=== PATIENT | female | born 1990 | race Caucasian/White ===

== ENCOUNTER 2017-04-01 17:30 | Inpatient (IN) | payer OTHER ==
[~2017-04-01] VITALS: Ht 160 cm; Wt 60.8 kg
[2017-04-01] MEDS ORDERED: LR 1,000 ML IV SCH (19:22)
[2017-04-01] MEDS ORDERED: LR 1,000 ML IV ONE (19:22)
[2017-04-01] MEDS ORDERED: OXYTOCIN/NORMAL SALINE 1,000 ML IV SCH (19:22)
[2017-04-01] MEDS ORDERED: CLINDAMYCIN 900 mg/50mL D5W 50 ML IV SCH (19:30)
[2017-04-01] MEDS ORDERED: TERBUTALINE SULFATE 1 MG/ML VIAL SUBCUT ONE (19:30)
[2017-04-01] MEDS ORDERED: NALBUPHINE HCL 10 MG/ML AMP IVP PRN (19:30)
[2017-04-01 20:03] LABS: HEMOGLOBIN 12.9 g/dL (12.0-16.0)
[2017-04-01 20:10] LABS: BASOPHILS # (AUTO) 0.1 K/uL (0.0-0.2); BASOPHILS % (AUTO) 1.3 % (0.0-2.0); EOSINOPHILS % (AUTO) 0.5 % (0.0-4.0); HEMATOCRIT 37.7 % (36-48); LYMPHOCYTES # (AUTO) 1.1 K/uL (1.0-5.5); LYMPHOCYTES % (AUTO) 13.1 % (20.5-51.5); MEAN CORPUSCULAR HEMOGLOBIN 32 pg (27-31); MEAN CORPUSCULAR HGB CONC 34 % (32-36); MEAN CORPUSCULAR VOLUME 94 fL (79.0-98.0); MONOCYTES # (AUTO) 0.3 K/uL (0.0-1.0); MONOCYTES % (AUTO) 3.6 % (1.7-9.3); NEUTROPHILS # (AUTO) 6.8 K/uL (1.8-7.7); RED BLOOD CELL COUNT(AUTO) 4.03 MIL/uL (4.2-6.2); RED CELL DISTRIBUTION WIDTH 13.1 % (9.0-15.0); WHITE BLOOD COUNT (AUTO) 8.3 K/uL (4.8-10.8)
[2017-04-01 20:30] LABS: PLATELET COUNT (AUTO) 163 K/uL (130-430)
[2017-04-01 20:31] LABS: NEUTROPHILS % (AUTO) 81.5 % (40.0-70.0)
[2017-04-01] MEDS ORDERED: fentaNYL CITRATE/PF 100 MCG/2 ML AMP ONE (21:04)
[2017-04-01] MEDS ORDERED: FENT2mCg/mL-ROPIVA0.2%/NS EPID 150 ML EP ONE (21:04)
[2017-04-01] MEDS ORDERED: LR 500 ML IV ONE (21:23)
[2017-04-01] MEDS ORDERED: FENT2mCg/mL-ROPIVA0.2%/NS EPID 150 ML EP SCH (21:30)
[2017-04-01] MEDS ORDERED: ePHEDrine sulfate 50 MG/ML VIAL IVP PRN (21:30)
[2017-04-02] MEDS ORDERED: OXYTOCIN/NORMAL SALINE 1,000 ML IV SCH (03:08)
[2017-04-02] MEDS ORDERED: OXYTOCIN/NORMAL SALINE 1,000 ML IV ONE (03:08)
[2017-04-02] MEDS ORDERED: DOCUSATE SODIUM 100 MG CAPSULE PO PRN (03:15)
[2017-04-02] MEDS ORDERED: OXYCODONE/ACETAMINOPHEN 5-325 TABLET PO PRN ×2 (03:15)
[2017-04-02] MEDS ORDERED: RHO(D) IMMUNE GLOBULIN/MALTOSE 1500 UNITS/1.3 ML (WINHRO) IM PRN (03:15)
[2017-04-02] MEDS ORDERED: METHYLERGONOVINE MALEATE 0.2 MG TABLET PO PRN (03:15)
[2017-04-02] MEDS ORDERED: ANUSOL 1 EA SUPP.RECT (PREPARATION H) RC PRN (03:15)
[2017-04-02] MEDS ORDERED: DERMOPLAST SPRAY TP PRN (03:15)
[2017-04-02] MEDS ORDERED: HYDROcodone/ACETAMIN 5-325 MG TAB (NORCO/ VICODIN) PO PRN (03:15)
[2017-04-02] MEDS ORDERED: GLYCERIN/WITCH HAZEL (TUCKS PADS) TP PRN (03:15)
[2017-04-02] MEDS ORDERED: LANOLIN 7 GM OINT. TP PRN (03:15)
[2017-04-02] MEDS ORDERED: HYDROCORTISONE 0.5%, 28.35 GM TOPICAL CREAM TP PRN (03:15)
[2017-04-02] MEDS ORDERED: SENNOSIDES/DOCUSATE SODIUM 1 TAB TABLET(SENOKOT-S) PO PRN (03:15)
[2017-04-02] MEDS ORDERED: MEASLES,MUMPS&RUBELLA VACC/PF 12500 UNIT/0.5 ML VIAL SUBQ PRN (03:15)
[2017-04-02] MEDS: IBUPROFEN 600 MG TABLET PO SCH (11:59)
[2017-04-02] MEDS ORDERED: TEMAZEPAM 15 MG CAPSULE PO PRN (21:00)
[2017-04-03] MEDS: IBUPROFEN 600 MG TABLET PO SCH ×3 (02:20→12:48)
[2017-04-03] MEDS ORDERED: IBUPROFEN 600 MG TABLET ONE ×2 (02:26→05:57)
[2017-04-03 08:13] LABS: BASOPHILS % (AUTO) 0.4 % (0.0-2.0); EOSINOPHILS # (AUTO) 0.1 K/uL (0.0-0.4); EOSINOPHILS % (AUTO) 0.9 % (0.0-4.0); HEMATOCRIT 33.2 % (36-48); HEMOGLOBIN 10.9 g/dL (12.0-16.0); LYMPHOCYTES # (AUTO) 1.4 K/uL (1.0-5.5); LYMPHOCYTES % (AUTO) 13.5 % (20.5-51.5); MEAN CORPUSCULAR HEMOGLOBIN 31 pg (27-31); MEAN CORPUSCULAR HGB CONC 33 % (32-36); MEAN CORPUSCULAR VOLUME 94 fL (79.0-98.0); MONOCYTES # (AUTO) 0.4 K/uL (0.0-1.0); MONOCYTES % (AUTO) 3.7 % (1.7-9.3); NEUTROPHILS # (AUTO) 8.1 K/uL (1.8-7.7); PLATELET COUNT (AUTO) 147 K/uL (130-430); RED BLOOD CELL COUNT(AUTO) 3.53 MIL/uL (4.2-6.2); RED CELL DISTRIBUTION WIDTH 12.9 % (9.0-15.0)
[2017-04-03 10:26] LABS: NEUTROPHILS % (AUTO) 81.5 % (40.0-70.0)
[2017-04-03] MEDS ORDERED: LIDOCAINE PF 1% 30ML(POUR BTL) INJ ONE (15:00)
== END 2017-04-03 16:45 | disposition home or self-care (01) | DRG 775 ==
LOC: SPU 17:30
PROVIDERS: ADMIT Specialist; ATTEND Specialist
PROC: 10E0XZZ Delivery of Products of Conception, External Approach (ICD-10-PCS; principal; 2017-04-02)
PROC: 0KQM0ZZ Repair Perineum Muscle, Open Approach (ICD-10-PCS; 2017-04-02)
PROC: 3E0R3CZ (ICD-10-PCS; 2017-04-02)
PROC: 00HU33Z Insertion of Infusion Device into Spinal Canal, Percutaneous Approach (ICD-10-PCS; 2017-04-02)
PROC: 3E0134Z Introduction of Serum, Toxoid and Vaccine into Subcutaneous Tissue, Percutaneous Approach (ICD-10-PCS; 2017-04-02)
DX: O42.92 Full-term premature rupture of membranes, unspecified as to length of time between rupture and onset of labor (principal); O69.81X0 Labor and delivery complicated by cord around neck, without compression, not applicable or unspecified; O70.1 Second degree perineal laceration during delivery; Z3A.37 37 weeks gestation of pregnancy; Z37.0 Single live birth; Z88.0 Allergy status to penicillin; Z23 Encounter for immunization
CPT/HCPCS: 36415; 81002-TC; 82947-TC; 82962; 85025; 86592; 86886; 86900; 86901; J2001; J2590; J3010; J3490; J7120

== ENCOUNTER 2018-10-06 22:44 | Emergency (ER) | payer OTHER ==
[~2018-10-06] VITALS: Ht 160 cm; Wt 57.2 kg
[2018-10-06 22:56] VITALS: BP_SYST 124
[2018-10-06] MEDS ORDERED: ACETAMINOPHEN 500 MG TABLET PO ONE (23:15)
[2018-10-06] MEDS ORDERED: NACL 0.9% 1,000 ML IV ONE (23:15)
[2018-10-06] MEDS ORDERED: AZITHROMYCIN 250 MG TABLET PO ONE (23:15)
[2018-10-07 00:15] VITALS: BP_SYST 124
== END 2018-10-07 00:15 | disposition home or self-care (01) ==
LOC: SED 22:44
DX: J32.9 Chronic sinusitis, unspecified (principal); Z88.0 Allergy status to penicillin
CPT/HCPCS: 96360; 99283; J7030; Q0144

== ENCOUNTER 2022-01-21 12:59 | Inpatient (IN) | payer OTHER ==
[~2022-01-21] VITALS: Ht 160 cm; Wt 67.1 kg
[2022-01-21] MEDS ORDERED: NALBUPHINE HCL 10 MG/ML AMP IVP PRN (14:15)
[2022-01-21] MEDS ORDERED: TERBUTALINE SULFATE 1 MG/ML VIAL SUBCUT ONE (14:15)
[2022-01-21] MEDS ORDERED: LR 1,000 ML IV SCH (14:15)
[2022-01-21 14:20] VITALS: BP_SYST 115
[2022-01-21 14:53] LABS: BASOPHILS % (AUTO) 0.2 % (0.0-2.0); EOSINOPHILS # (AUTO) 0.1 K/uL (0.0-0.4); EOSINOPHILS % (AUTO) 0.7 % (0.0-4.0); HEMATOCRIT 35.1 % (36-48); LYMPHOCYTES # (AUTO) 0.9 K/uL (1.0-5.5); LYMPHOCYTES % (AUTO) 11.1 % (20.5-51.5); MEAN CORPUSCULAR HEMOGLOBIN 31 pg (27-31); MEAN CORPUSCULAR HGB CONC 34 % (32-36); MEAN CORPUSCULAR VOLUME 91 fL (79.0-98.0); MONOCYTES # (AUTO) 0.3 K/uL (0.0-1.0); MONOCYTES % (AUTO) 3.9 % (1.7-9.3); NEUTROPHILS # (AUTO) 6.9 K/uL (1.8-7.7); NEUTROPHILS % (AUTO) 84.1 % (40.0-70.0); PLATELET COUNT (AUTO) 201 K/uL (130-430); RED BLOOD CELL COUNT(AUTO) 3.87 MIL/uL (4.2-6.2); RED CELL DISTRIBUTION WIDTH 13.1 % (9.0-15.0); WHITE BLOOD COUNT (AUTO) 8.2 K/uL (4.8-10.8)
[2022-01-21] MEDS ORDERED: fentaNYL CITRATE/PF 100 MCG/2 ML AMP ONE (15:51)
[2022-01-21] MEDS ORDERED: ROPIVACAINE HCL/PF 0.2% 200 ML ONE (15:51)
[2022-01-21] MEDS ORDERED: FENT2mCg/mL-ROPIVA0.2%/NS EPID 200 ML EP SCH (16:30)
[2022-01-21] MEDS ORDERED: LR 500 ML IV ONE (16:30)
[2022-01-21] MEDS ORDERED: OXYTOCIN/0.9 % SODIUM CHLORIDE 1,000 ML IV SCH ×2 (16:45→18:45)
[2022-01-21] MEDS ORDERED: OXYTOCIN/0.9 % SODIUM CHLORIDE 1,000 ML IV ONE ×3 (16:45→20:07)
[2022-01-21] MEDS ORDERED: METHYLERGONOVINE MALEATE 0.2 MG TABLET PO PRN (18:45)
[2022-01-21] MEDS ORDERED: OXYCODONE/ACETAMINOPHEN 5-325 TABLET PO PRN ×2 (18:45)
[2022-01-21] MEDS ORDERED: NALOXONE HCL 0.4 MG/ML AMP (NARCAN) IVP PRN (18:45)
[2022-01-21] MEDS ORDERED: LANOLIN 7 GM OINT. TP PRN (18:45)
[2022-01-21] MEDS ORDERED: RHO(D) IMMUNE GLOBULIN/MALTOSE 1500 UNITS/1.3 ML (WINHRO) IM PRN (18:45)
[2022-01-21] MEDS ORDERED: MEASLES,MUMPS&RUBELLA VACC/PF 12500 UNIT/0.5 ML VIAL SUBQ PRN (18:45)
[2022-01-21] MEDS ORDERED: DERMOPLAST SPRAY TP PRN (18:45)
[2022-01-21] MEDS ORDERED: ANUSOL 1 EA SUPP.RECT (PREPARATION H) RC PRN (18:45)
[2022-01-21] MEDS ORDERED: DIPH-TET-PERTUS Vaccine 0.5 ML VIAL (ADACEL) I.M. PRN (18:45)
[2022-01-21] MEDS ORDERED: HYDROcodone/ACETAMIN 5-325 MG TAB (NORCO/ VICODIN) PO PRN (18:45)
[2022-01-21] MEDS ORDERED: WITCH HAZEL LEAF 1 MED.PAD MED.PAD TP PRN (18:45)
[2022-01-21] MEDS ORDERED: HYDROCORTISONE 0.5% CREAM 28.4 GM CREAM.GM. TP PRN (18:45)
[2022-01-21] MEDS ORDERED: SENNOSIDES/DOCUSATE SODIUM 1 TAB TABLET(SENOKOT-S) PO SCH (21:00)
[2022-01-21] MEDS ORDERED: TEMAZEPAM 15 MG CAPSULE PO PRN (21:00)
[2022-01-22] MEDS: IBUPROFEN 600 MG TABLET PO SCH ×4 (00:11→17:57)
[2022-01-22 07:03] LABS: BASOPHILS % (AUTO) 0.4 % (0.0-2.0); EOSINOPHILS # (AUTO) 0.1 K/uL (0.0-0.4); HEMATOCRIT 32.6 % (36-48); HEMOGLOBIN 11.1 g/dL (12.0-16.0); LYMPHOCYTES # (AUTO) 1.1 K/uL (1.0-5.5); LYMPHOCYTES % (AUTO) 9.9 % (20.5-51.5); MEAN CORPUSCULAR HEMOGLOBIN 31 pg (27-31); MEAN CORPUSCULAR HGB CONC 34 % (32-36); MEAN CORPUSCULAR VOLUME 92 fL (79.0-98.0); MONOCYTES # (AUTO) 0.5 K/uL (0.0-1.0); MONOCYTES % (AUTO) 5.1 % (1.7-9.3); NEUTROPHILS % (AUTO) 83.6 % (40.0-70.0); PLATELET COUNT (AUTO) 172 K/uL (130-430); RED BLOOD CELL COUNT(AUTO) 3.56 MIL/uL (4.2-6.2); RED CELL DISTRIBUTION WIDTH 13.1 % (9.0-15.0); WHITE BLOOD COUNT (AUTO) 10.7 K/uL (4.8-10.8)
[2022-01-22] MEDS ORDERED: DOCUSATE SODIUM 100 MG CAPSULE PO SCH (09:00)
[2022-01-23 20:06] LABS: FTA-Ab (T PALLIDUM) Non Reactive (Non Reactive)
== END 2022-01-22 20:11 | disposition home or self-care (01) | DRG 807 ==
LOC: SPU 12:59 → OBSVTOIN 12:59
PROVIDERS: ADMIT Specialist; ATTEND Specialist
PROC: 10E0XZZ Delivery of Products of Conception, External Approach (ICD-10-PCS; principal; 2022-01-21)
PROC: 0HQ9XZZ Repair Perineum Skin, External Approach (ICD-10-PCS; 2022-01-21)
PROC: 3E0R3BZ Introduction of Anesthetic Agent into Spinal Canal, Percutaneous Approach (ICD-10-PCS; 2022-01-21)
PROC: 00HU33Z Insertion of Infusion Device into Spinal Canal, Percutaneous Approach (ICD-10-PCS; 2022-01-21)
DX: O70.0 First degree perineal laceration during delivery (principal); Z37.0 Single live birth; Z20.822 Contact with and (suspected) exposure to COVID-19; Z3A.37 37 weeks gestation of pregnancy
CPT/HCPCS: 36415; 85025; 86592; 86780; 86886; 86900; 86901; J2590; J3010

== ENCOUNTER 2022-08-26 15:39 | Emergency (ER) | payer OTHER ==
[~2022-08-26] VITALS: Ht 160 cm; Wt 57.6 kg
[2022-08-26 16:19] VITALS: BP_SYST 115
--- NOTE | 2022-08-26 16:53 | NUR ---
ER IN TRIAGEe examining patient.
--- NOTE | 2022-08-26 18:02 | NUR ---
PATIENT BROUGHT IN COMPLAINING OF SHARP INTERMITTENT CHEST PAIN NON RADIATING WHEN COUGHING. PATIENT REPORTS HAVING COVID 2 WEEKS AGO. DENIES PAIN AT THIS TIME
[2022-08-26] MEDS ORDERED: IBUP-1971 PO (18:39)
[2022-08-26 19:01] VITALS: BP_SYST 119
--- NOTE | 2022-08-26 19:01 | NUR ---
Patient given written and verbal discharge instructions and verbalizes understanding. ER MD discussed with patient the results and treatment provided. Patient in stable condition. ID arm band removed. Rx of MOTRIN given. Patient educated on pain management and to follow up with PMD. Pain Scale 0/10 Opportunity for questions provided and answered. Medication side effect fact sheet provided.
== END 2022-08-26 19:01 | disposition home or self-care (01) ==
LOC: SED 15:39
DX: R09.1 Pleurisy (principal); R07.89 Other chest pain
CPT/HCPCS: 93005; 99283

== ENCOUNTER 2023-01-28 10:29 | Emergency (ER) | payer OTHER ==
[~2023-01-28] VITALS: Ht 160 cm; Wt 59.0 kg
[~2023-01-28 10:29] MED LIST: IBUP-1971 PO
[2023-01-28 10:30] VITALS: BP_SYST 115
--- NOTE | 2023-01-28 10:30 | NUR ---
BROUGHT BACK TO BED #5 AND TRIAGED, REPORT GIVEN TO RUSTY
--- NOTE | 2023-01-28 11:05 | NUR ---
ER at bedside examining patient.
--- NOTE | 2023-01-28 11:08 | NUR ---
Pt BIB family member. C/O LLQ abdominal pain. Pt states onset of pain for one year. Pt denies NVD. Afebrile. Pt denies dsyuria. Pt denies back pain, no radiation of pain. Pt not tender to touch. States 2/10 pain level. Pt states uncertainty of perception of wellness. AAOX4. Skin dry and intact. PERRLA. pt speaking full complete sentences.
[2023-01-28 11:16] LABS: BASOPHILS % (AUTO) 0.8 % (0.0-2.0); EOSINOPHILS # (AUTO) 0.1 K/uL (0.0-0.4); EOSINOPHILS % (AUTO) 1.7 % (0.0-4.0); HEMATOCRIT 40.2 % (36-48); HEMOGLOBIN 13.3 g/dL (12.0-16.0); LYMPHOCYTES # (AUTO) 1.1 K/uL (1.0-5.5); MEAN CORPUSCULAR HEMOGLOBIN 30 pg (27-31); MEAN CORPUSCULAR HGB CONC 33 % (32-36); MEAN CORPUSCULAR VOLUME 90 fL (79.0-98.0); MONOCYTES # (AUTO) 0.2 K/uL (0.0-1.0); MONOCYTES % (AUTO) 4.2 % (1.7-9.3); NEUTROPHILS % (AUTO) 73.3 % (40.0-70.0); PLATELET COUNT (AUTO) 261 K/uL (130-430); RED BLOOD CELL COUNT(AUTO) 4.49 MIL/uL (4.2-6.2); RED CELL DISTRIBUTION WIDTH 13.5 % (9.0-15.0); WHITE BLOOD COUNT (AUTO) 5.5 K/uL (4.8-10.8)
[2023-01-28 11:31] LABS: CALCIUM 8.4 mg/dL (8.4-11.0); CREATININE 0.64 mg/dL (0.55-1.30)
[2023-01-28 11:35] LABS: ALBUMIN 3.9 g/dL (3.4-4.8); TOTAL BILIRUBIN 1.3 mg/dL (0.0-1.0)
[2023-01-28 13:34] LABS: BILIRUBIN,URINE NEGATIVE (NEGATIVE); CLARITY/URINE CLEAR (CLEAR); COLOR,URINE YELLOW (YELLOW); GLUCOSE,URINE NEGATIVE (NEGATIVE); KETONES,URINE 3+ (NEGATIVE); LEUKOCYTE ESTERASE ,URINE NEGATIVE (NEGATIVE); NITRITE, URINE NEGATIVE (NEGATIVE); PROTEIN URINE NEGATIVE (NEGATIVE); UROBILINOGEN,URINE 0.2 (0.2-1.0)
[2023-01-28 13:38] LABS: BLOOD, URINE TRACE (NEGATIVE)
[2023-01-28 13:42] LABS: BACTERIA,URINE FEW /HPF (None Seen); RBC,URINE 0-3 /HPF (0-3); WBC,URINE NONE SEEN /HPF (0-3)
[2023-01-28] MEDS ORDERED: IBUP-1969 PO (15:47)
--- NOTE | 2023-01-28 15:56 | NUR ---
Patient given written and verbal discharge instructions and verbalizes understanding. ER MD discussed with patient the results and treatment provided. Patient in stable condition. ID arm band removed. IV catheter removed intact and dressing applied, no active bleeding. Patient educated on ovarian cyst and to follow up with public policy associate. Opportunity for questions provided and answered. Medication side effect fact sheet provided.
[2023-01-28 17:58] VITALS: BP_SYST 115
== END 2023-01-28 16:01 | disposition home or self-care (01) ==
LOC: SED 10:29
DX: N83.201 Unspecified ovarian cyst, right side (principal); R10.31 Right lower quadrant pain; Z88.0 Allergy status to penicillin; Z79.899 Other long term (current) drug therapy
CPT/HCPCS: 99285; 74177; 80053; 81000; 83690; 85025; 36415; 76376; 83605; Q9967